=== PATIENT | female | born 1970 | race Two or more races ===

== ENCOUNTER 2025-05-14 10:42 | Emergency (ER) | payer MEDICAID, OTHER ==
[~2025-05-14] VITALS: Ht 152.4 cm; Wt 89.0 kg
== END 2025-05-14 13:09 | disposition left against medical advice (07) ==
LOC: ER 10:42
DX: R51.9 Headache, unspecified (principal); Z53.21 Procedure and treatment not carried out due to patient leaving prior to being seen by health care provider